=== PATIENT | male | born 1970 | race Caucasian/White ===

== ENCOUNTER 2017-06-22 16:00 | Emergency (ER) | payer OTHER ==
[~2017-06-22] VITALS: Ht 188 cm; Wt 97.5 kg
[2017-06-22] MEDS ORDERED: LEXAPRO20 MG ORAL (16:10)
[2017-06-22] MEDS ORDERED: Norco 5mg/325mg tab ORAL ONE (16:30)
[2017-06-22] MEDS ORDERED: Lidocaine 1% 10mg/ml/Epi 0.005mg/ml 30ml vial INJ ONE (16:30)
--- NOTE | 2017-06-22 17:11 | Emergency Room Report ---
History of Present Illness General Chief Complaint: Laceration Source: Patient (Yokasta Sen) Present Illness HPI 46 YO male presents to the ED c/O Right hand laceration, pt. is left hand dominant. pt. is UTD with tetanus, denies taking blood thinning medications. 8/ 10 in severity sharp very localized dorsal hand pain with full extension of the right index finger, and full flexion, relief with neutral position of the hand. 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 Denies numbness tingling or loss of sensation or gross motor movements of the extremities, incontinence of bowel or bladder. Denies CP, Palpitations, LOC, AMS, dizziness, Changes in Vision, Sensation, paresthesias, or a sudden severe headache. (Yokasta Sen) Allergies: Coded Allergies: No Known Allergies (Unverified , 06/22/17) Patient History Past Medical History: see triage record Past Surgical History: none Pertinent Family History: none Immunizations: UTD Reviewed Nursing Documentation: PMH: Agreed, PSxH: Agreed (Yokasta Sen) Nursing Documentation-PMH Past Medical History: No History, Except For History Of Psychiatric Problem: Yes - depression (Yokasta Sen) Review of Systems All Other Systems: negative except mentioned in HPI (Yokasta Sen) Physical Exam Vital Signs Date Time Temp Pulse Resp B/P (MAP) Pulse Ox O2 Delivery O2 Flow Rate FiO2 06/22/17 16:08 97.9 53 16 135/70 96 Room Air Sp02 EP Interpretation: reviewed, normal General Appearance: no apparent distress, alert, GCS 15, non-toxic Head: normocephalic, atraumatic Eyes: bilateral eye normal inspection, bilateral eye PERRL ENT: hearing grossly normal, normal voice Neck: full range of motion Respiratory: lungs clear, normal breath sounds, speaking full sentences Cardiovascular #1: regular rate, rhythm, normal capillary refill Musculoskeletal: back normal, gait/station normal, normal range of motion, tender - TTP to superficial palpation to the dorsum of the right hand just proximal to the second metacarpal, obvious laceration, pain with extension against resistance. and full flexion of the right 2nd digit. Neurologic: alert, oriented x3, responsive, motor strength/tone normal, sensory intact, speech normal Psychiatric: judgement/insight normal, memory normal, mood/affect normal Skin: normal color, no rash, warm/dry, well hydrated, laceration - 3.5 cm laceration involving 75-80 % of the extensor tendon of the right second digit. no bleeding at this time. no obvious FB. (Yokasta Sen) Procedures Laceration/Wound Repair Laceration/Wound Repair : Consent: Verbal Wound Location: upper extremity - right hand Wound's Depth, Shape: other - partial tendon lac Wound Length (cm): 3 Wound Explored: clean Irrigated w/ Saline (ccs): 200 Anesthesia: Lidocaine w/ Epi Volume Anesthetic (ccs): 2 Wound Debrided: minimal Wound Repaired With: sutures Suture Size/Type: 5:0 Number of Sutures: 5 Layer Closure?: No Sterile Dressing Applied?: Yes Splint Applied?: Yes Type of Splint Applied: long finger splint Sling Applied?: No Patient Tolerated: Well Complications: None (Yokasta Sen) Medical Decision Making PA Attestation Dr. Aguirre is my supervising Physician whom patient management has been discussed with. (Yokasta Sen) Diagnostic Impression: Primary Impression: Extensor tendon laceration of hand with open wound Qualified Codes: S66.821A - Laceration of other specified muscles, fascia and tendons at wrist and hand level, right hand, initial encounter; S61.401A - Unspecified open wound of right hand, initial encounter ER Course 46 YO male presents to the ED c/O Right hand laceration, pt. is left hand dominant. pt. is UTD with tetanus, denies taking blood thinning medications. 8/ 10 in severity sharp very localized dorsal hand pain with full extension of the right index finger, and full flexion, relief with neutral position of the hand. 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 Denies numbness tingling or loss of sensation or gross motor movements of the extremities, incontinence of bowel or bladder. Denies CP, Palpitations, LOC, AMS, dizziness, Changes in Vision, Sensation, paresthesias, or a sudden severe headache. Ddx considered but are not limited to laceration, tendon injury, cellulitis, amputation Vital signs: are WNL, pt. is afebrile H&PE are most consistent with: dorsal right hand laceration with partial extensor tendon laceration approx 3.5 cm in length ORDERS: none required at this time, the diagnosis is clinical ED INTERVENTIONS: - The wound was copiously irrigated with normal saline, and explored for foreign body for which no FB was found. - pt. is anesthetized with 1%lidocaine w. epi. approx 2 cc. - The wound was approximated and closed using 5 interrupted 5.0 Prolene sutures. -Bacitracin and sterile dressing is applied. - Long finger Splint applied to the right index finger by earth science technician. Pt. remains neurovascularly intact. -- Right arm Sling applied by earth science technician. Pt. remains neurovascularly intact. Discussed with patient: That we make every effort to approximate the laceration as best as we can so that scarring will be as cosmetically pleasing as possible with our limited cosmetic skill set in the Emergency dept. Regardless of our best efforts there will be scarring after laceration repair. The extent of scarring is unknown at this time. PT. given follow up referral to Dr. Gandhi hand/plastics specialist. who was consulted for this case, recommended ED closure, on abx with splint and outpatient follow up. DISCHARGE: At this time pt. is stable for d/c to home. Will provide printed patient care instructions, and any necessary prescriptions. Care plan and follow up instructions have been discussed with the patient prior to discharge. (Yokasta Sen) ER Course Consultation with hand surgeon undertaken. Treatment plan in accordance with this discussion. (Vipul Aguirre M.D.) Last Vital Signs Date Time Temp Pulse Resp B/P (MAP) Pulse Ox O2 Delivery O2 Flow Rate FiO2 06/22/17 16:08 97.9 53 16 135/70 96 Room Air (Yokasta Sen) Disposition: HOME, SELF-CARE Condition: Stable Scripts Hydrocodone Bit/Acetaminophen 5-325* (NORCO 5-325*) 1 Each Tablet 1 TAB ORAL Q6H Y for For Pain, #9 TAB 0 Refills Prov: Yokasta Sen 06/22/17 Cephalexin* (KEFLEX*) 500 Mg Capsule 500 MG ORAL EVERY 12 HOURS for 7 Days, #14 CAP 0 Refills Prov: Yokasta Sen 06/22/17 Bacitracin/Polymyxin B Sulfate (BACITRACIN-POLYMYXIN OINTMENT) 28.35 Gm Oint...g. 1 APPLIC TP BID, #28.3 GM Prov: Yokasta Sen 06/22/17 Referrals: OTTO GANDHI Departure Forms: Return to Work Return to Work Date: Jun 25, 2017 Work Restrictions: No Heavy Lifting, Desk Work Only Other Restrictions: light duty, limited use of right hand, keep clean and dry. Return to Full Activity: Jul 02, 2017 Patient Instructions: Laceration Care, Adult Additional Instructions: Take medications as directed. Follow up with a Primary Care Provider in 3-5 days, even if your symptoms have resolved. --Please review list of primary care clinics, if you do not already have a primary care provider Return sooner to ED if new symptoms occur, or current symptoms become worse. - Please note that this Emergency Department Report was dictated using [employer] column operator technology software, occasionally this can lead to erroneous entry secondary to interpretation by the dictation equipment. Yokasta Sen Jun 22, 2017 17:11 Vipul Aguirre M.D. Jun 24, 2017 04:18
[2017-06-22] MEDS ORDERED: Bacitracin Oint UD TOPIC ONE (18:30)
[2017-06-22] MEDS ORDERED: NORCO 5-325 TA1 EACH ORAL (18:33)
[2017-06-22] MEDS ORDERED: BACITRACIN-P28.35 GM TP (18:33)
[2017-06-22] MEDS ORDERED: CEPHALEXIN500 MG ORAL (18:33)
[2017-06-22 19:20] VITALS: BP 132/74
== END 2017-06-22 19:20 | disposition home or self-care (01) ==
LOC: EMR 17:20
DX: S61.411A Laceration without foreign body of right hand, initial encounter (principal); S66.320A Laceration of extensor muscle, fascia and tendon of right index finger at wrist and hand level, initial encounter; W26.0XXA Contact with knife, initial encounter; Y92.511 Restaurant or cafe as the place of occurrence of the external cause; Y99.0 Civilian activity done for income or pay
CPT/HCPCS: 99284